=== PATIENT | male | born 1960 | race Caucasian/White ===

== ENCOUNTER 2018-09-03 16:05 | Emergency (ER) | payer BC ==
[~2018-09-03] VITALS: Ht 185.4 cm; Wt 104.3 kg
--- NOTE | ~2018-09-03 | EKG ---
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
--- NOTE | ~2018-09-03 | EKG ---
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
[2018-09-03 16:06] VITALS: BP 161/89
[2018-09-03] MEDS ORDERED: ASPIRIN CHEWABL81 MG PO (16:07)
[2018-09-03] MEDS ORDERED: TRAMADOL HCL50 MG PO (16:07)
[2018-09-03] MEDS ORDERED: HYDROCODONE-AC1 EAC1 PO (16:08)
[2018-09-03 16:37] LABS: BASO % 0.2 % (0.0-1.0); EOS % 0.1 % (1.0-4.0); HEMATOCRIT 48.5 % (42.0-52.0); HEMOGLOBIN 16.3 g/dl (14.0-18.0); LYMPH # 0.5 10*3/uL (1.3-4.4); LYMPH % 3.7 % (27.0-41.0); MEAN CELL VOLUME 88.3 fl (80.0-94.0); MEAN CORPUSCULAR HGB 29.7 pg (27.0-31.0); MEAN CORPUSCULAR HGB CONC 33.6 g/dl (33.0-37.0); MEAN PLATELET VOLUME 9.4 fl (9.6-12.3); MONO # 1.1 10*3/uL (0.1-1.0); MONO % 7.7 % (3.0-9.0); NEUT # 12.7 10*3/uL (2.3-7.9); NEUT % 87.8 % (47.0-73.0); PLATELET COUNT AUTOMATED 250 10*3/uL (130-400); RED BLOOD COUNT 5.49 10*6/uL (4.50-5.90); RED CELL DISTRI WIDTH 13.2 % (0-14.5); WHITE BLOOD COUNT 14.5 10*3/uL (4.8-10.8)
[2018-09-03 16:47] LABS: INTERNATIONAL NORM RATIO 1.1 (2.0-3.5)
[2018-09-03 16:50] VITALS: BP 167/91
[2018-09-03 17:12] LABS: ALBUMIN 3.4 gm/dl (3.1-4.5); ALKALINE PHOSPHATASE 77 U/L (45-117); BUN 14 mg/dl (7-24); CHLORIDE 97 mmol/L (98-107); CREATININE 0.95 mg/dL (0.70-1.30); SGOT/AST 16 IU/L (3-35); SGPT/ALT 22 U/L (12-78); SODIUM 131 mmol/L (136-145); TOTAL PROTEIN 8.1 gm/dL (6.4-8.2)
[2018-09-03 17:23] LABS: TROPONIN I < 0.015 ng/ml (<0.045)
[2018-09-03 17:25] LABS: BILIRUBIN 1+ (NEGATIVE); BLOOD TRACE-INTACT (NEGATIVE); CLARITY SL CLOUDY (CLEAR); COLOR YELLOW (YELLOW); GLUCOSE NEGATIVE (NEGATIVE); KETONE 2+ (NEGATIVE); LEUKO ESTERASE NEGATIVE (NEGATIVE); NITRITE NEGATIVE (NEGATIVE); SPECIFIC GRAVITY >= 1.030 (1.005-1.030)
[2018-09-03 17:54] LABS: MUCOUS 1+
[2018-09-03 17:55] LABS: BACTERIA TRACE; WBC 0-2 wbc/hpf (0-5)
[2018-09-03] MEDS ORDERED: LEVAQUIN750 M1 PO (18:46)
[2018-09-03] MEDS ORDERED: ZOFRAN ODT4 MG SL (18:46)
== END 2018-09-03 18:50 | disposition left against medical advice (07) ==
LOC: ED 16:05 → EDHOLD 17:51 → ED 17:51
PROVIDERS: Emergency Medicine
DX: A41.9 Sepsis, unspecified organism (principal); J18.1 Lobar pneumonia, unspecified organism; F17.200 Nicotine dependence, unspecified, uncomplicated; E66.9 Obesity, unspecified; Z79.82 Long term (current) use of aspirin; Z79.899 Other long term (current) drug therapy; Z88.0 Allergy status to penicillin